=== PATIENT | female | born 1975 ===

== ENCOUNTER 2017-03-01 07:05 | Emergency (ER) | payer SELFPAY ==
[2017-03-01] MEDS ORDERED: Ketorolac 60 MG/2 ML SDV IM ONE (07:41)
--- NOTE | 2017-03-01 07:46 | EDM.PDOC ---
ED HPI GENERAL MEDICAL PROBLEM - General Chief Complaint: Upper Extremity Injury/Pain Stated Complaint: LT HAND HURTS Time Seen by Provider: 03/01/17 07:15 Source of Information: Reports: Patient History Limitations: Reports: No Limitations - History of Present Illness INITIAL COMMENTS - FREE TEXT/NARRATIVE: History of present illness: []Patient broke her left distal forearm yesterday and was splinted in [place]. She presents with pain. Not prescribe any pain medicine. She denies any chest pain, shortness of breath or numbness or tingling of her left extremity Review of systems: As per history of present illness and below otherwise all systems reviewed and negative. Past medical history: As per history of present illness and as reviewed below otherwise noncontributory. Surgical history: As per history of present illness and as reviewed below otherwise noncontributory. Social history: No reported history of drug or alcohol abuse. Family history: As per history of present illness and as reviewed below otherwise noncontributory. Physical exam: General: Well developed, well nourished in NAD HEENT: Atraumatic, normocephalic, pupils reactive, negative for conjunctival pallor or scleral icterus, mucous membranes moist, throat clear, neck supple, nontender, trachea midline. Lungs: Clear to auscultation, breath sounds equal bilaterally, chest nontender. Heart: S1S2, regular, negative for clicks, rubs, or JVD. Abdomen: Soft, nondistended, nontender. Negative for masses or hepatosplenomegaly. Negative for costovertebral tenderness. Pelvis: Stable nontender. Genitourinary: Deferred. Rectal: Deferred. Extremities: Left forearm in a short arm volar splint, was unwrapped pulses palpable no gross deformities. negative for cords or calf pain. Neurovascular unremarkable. Neuro: Awake, alert, oriented. Cranial nerves II through XII unremarkable. Cerebellum unremarkable. Motor and sensory unremarkable throughout. Exam nonfocal. Diagnostics: [] Therapeutics: []Toradol IM Impression: []Left forearm fracture Plan: []Tramadol for pain follow-up with orthopedics as directed. Definitive disposition and diagnosis as appropriate pending reevaluation and review of above. Right Lower Arm Pain Score (Numeric/FACES): 6 - Related Data Allergies Allergy/AdvReac Type Severity Reaction Status Date / Time iodine Allergy Rash Verified 03/01/17 07:28 morphine Allergy Difficulty Verified 03/01/17 07:29 Breathing Sulfa (Sulfonamide Allergy Hives Verified 03/01/17 07:29 Antibiotics) Home Meds: Home Meds Gabapentin [Neurontin] 300 mg PO TID 03/01/17 [History] traMADol [Ultram] 50 mg PO Q8H #16 tablet 03/01/17 [Rx] Past Medical History - Past Health History Medical/Surgical History: Denies Medical/Surgical History Gastrointestinal History: Reports: Diverticulosis LINE PALLETIZER History: Reports: Endometriosis Musculoskeletal History: Reports: Other (See Below) Other Musculoskeletal History: Right wrist fracture 11/2016 Social & Family History - Family History Family Medical History: Noncontributory - Tobacco Use Smoking Status *Q: Never Smoker Second Hand Smoke Exposure: No - Caffeine Use Caffeine Use: Reports: Coffee - Alcohol Use Days Per Week of Alcohol Use: 0 - Recreational Drug Use Recreational Drug Use: No Review of Systems - Review of Systems Review Of Systems: See Below (See history of present illness) ED EXAM, GENERAL - Physical Exam Exam: See Below (See history of present illness) Course - Vital Signs Last Recorded V/S: Last Vital Signs Temp 98.1 F 03/01/17 07:29 Pulse 86 03/01/17 07:29 Resp 16 03/01/17 07:29 BP 166/102 H 03/01/17 07:29 Pulse Ox 98 03/01/17 07:29 - Orders/Labs/Meds Meds: Medications Discontinued Medications Generic Name Dose Route Start Last Admin Trade Name Freq PRN Reason Stop Dose Admin Ketorolac Tromethamine 60 mg 03/01/17 07:41 Toradol IM 03/01/17 07:42 ONETIME ONE Departure - Departure Time of Disposition: 07:45 Disposition: Home, Self-Care 01 Condition: Good Clinical Impression: Left wrist fracture Qualifiers: Encounter type: initial encounter Fracture type: closed Qualified Code(s): S62.102A - Fracture of unspecified carpal bone, left wrist, initial encounter for closed fracture - Discharge Information Referrals: PCP,None [Primary Care Provider] - Additional Instructions: The following information is given to patients seen in the emergency department who are being discharged to home. This information is to outline your options for follow-up care. We provide all patients seen in our emergency department with a follow-up referral. The need for follow-up, as well as the timing and circumstances, are variable depending upon the specifics of your emergency department visit. If you don't have a primary care physician on staff, we will provide you with a referral. We always advise you to contact your personal physician following an emergency department visit to inform them of the circumstance of the visit and for follow-up with them and/or the need for any referrals to a consulting specialist. The emergency department will also refer you to a specialist when appropriate. This referral assures that you have the opportunity for follow-up care with a specialist. All of these measure are taken in an effort to provide you with optimal care, which includes your follow-up. Under all circumstances we always encourage you to contact your private physician who remains a resource for coordinating your care. When calling for follow-up care, please make the office aware that this follow-up is from your recent emergency room visit. If for any reason you are refused follow-up, please contact the [facility] Emergency Department at and asked to speak to the emergency department charge nurse. Tramadol, Motrin, ice and elevate extremity. Follow-up with orthopedics next available [facility] [address] [place] [address], [address] [place] [address]
[2017-03-01 08:16] VITALS: BP 142/97
== END 2017-03-01 08:11 | disposition home or self-care (01) ==
LOC: MW.ED 07:05
DX: S62.102A Fracture of unspecified carpal bone, left wrist, initial encounter for closed fracture (principal); Z88.2 Allergy status to sulfonamides; Z88.5 Allergy status to narcotic agent; Z88.8 Allergy status to other drugs, medicaments and biological substances; X58.XXXA Exposure to other specified factors, initial encounter
CPT/HCPCS: 96372; 99283; J1885; 99282